=== PATIENT | female | born 1960 | race Caucasian/White ===

== ENCOUNTER 2024-03-06 09:42 | Emergency (ER) | payer BC, SELFPAY ==
--- NOTE | ~2024-03-06 | XR_ITS ---
EXAMINATION: XR ANKLE, LEFT CLINICAL INFORMATION: Pain COMPARISON: None available. TECHNIQUE: AP, lateral, and mortise views of the left ankle. FINDINGS: No acute cortical disruption or malalignment. No lytic or blastic lesions. No joint effusion. No subcutaneous emphysema. XR/XR ankle LT 2V IMPRESSION: No acute fracture or dislocation. Negative exam. Electronically signed by: Vincent Juarez MD 03/06/2024 12:38 PM EST
[2024-03-06 10:07] VITALS: BP 154/52; PULSE 77; RESP 16; TEMP 37; O2SAT 100; BMI 19.6
--- NOTE | 2024-03-06 13:14 | ED.GENADULT ---
HPI - General Adult General Chief complaint: Extremity Problem Stated complaint: L Ankle Pain No Injury Time Seen by Provider: 03/06/24 13:14 Source: patient Mode of arrival: ambulatory Limitations: no limitations History of Present Illness HPI narrative: 63 yold female with no pmh presents to the ED for left medial ankle pain decribe as shooting nerve pain that last seconds than resolve. patient states no trauma, swelling redness, calf pain, fever, chills, chest pain, sob, recent travel, recent surgery, or pluerisy. Related Data Allergies Allergy/AdvReac Type Severity Reaction Status Date / Time No Known Allergies Allergy Verified 03/06/24 10:09 Review of Systems Review of Systems: left anle pain Yes all other systems are reviewed and are negative PMFSH Social History Social History Advance Directives: No Advance Directives Information Provided: Yes Physical Exam ED Vital Signs: Vital Signs - 24 hr 03/06/24 13:15 03/06/24 13:30 Temperature 98.6 F Pulse Rate 89 89 Respiratory Rate 16 16 Blood Pressure 161/64 H 161/64 H Pulse Oximetry 98 98 Oxygen Delivery Method Room Air BMI result Body Mass Index 19.6 Const General: cooperative, healthy appearing, comfortable, no acute distress, well developed, alert, awake and Physically active Orientation/consciousness: patient oriented x3 HENMT Head: Yes normal to inspection, Yes No palpable skull fracture present, Yes normocephalic and Yes atraumatic Eyes General: appearance normal, both eyes and all related structures Neck Neck: Yes normal visual inspection, Yes full ROM, Yes no lymphadenopathy, Yes no meningeal signs, Yes trachea midline, Yes supple, No anterior neck swelling and No tender Chest Chest palpation & inspection: normal inspection of the chest and normal palpation of entire chest wall Resp Effort & Inspection: normal respiratory effort and able to speak in complete sentences Auscultation: clear to auscultation bilaterally Cardio Jugular venous distension: no JVD Heart sounds: S1 normal heart sound present and S2 normal heart sound present GI Inspection: Yes normal to inspection Palpation (GI): Soft to palpation, not firm, nontender, no guarding and not rigid General: Yes no CVA tenderness Back/Spine/Pelvis Back: no CVA tenderness and No back tenderness Skin General skin exam: no rashes or lesions noted, elasticity normal and turgor normal Neuro General: patient oriented x3, gait normal, tone normal, moves all extremities, Normal light touch and pain sensation, no meningeal signs, no focal motor deficits and CN's II-XI intact bilaterally Extrem General: Yes normal to inspection, No full ROM, Yes capillary refill normal, Yes normal exam except as noted, Yes no joint enlargement, Yes no clubbing, cyanosis or edema, Yes no pedal edema, Yes no calf tenderness and Yes normal gait Ankle/foot/toe images: 1. presently no pain. negative erythema, tenderness, bluish/black discoloration, ecchymosis, crepitus, swelling, calf pain, or rash. motor, neuro, and vascular exam is intact. Psych Appearance: grossly normal, well kempt and not disheveled Medical Decision Making Medical Decision Making MDM Narrative: 63 yold female with no pmh presents to the ED for resolved jolting left medial ankle pain. Patient denies any recent trauma, history long travel, recent surgery smoking, fever, chills, swelling, redness, calf pain, pleurisy, chest pain, shortness of breath. Patient states she was sent at work and felt a sudden jolt in pain and left medial ankle that occurred twice and then resolved. Physical exam negative for signs of DVT, arterial occlusion, compartment syndrome, osteomyelitis, necrotizing fasciitis, fracture, hematoma, or dislocation. X-ray normal. No indication for further imaging/ultrasound. Differential Diagnosis Differential Diagnoses: The differential diagnosis associated with the presentation includes (Fracture, dislocation, arthritis) Admission/Observation Consideration of admission/observation: Escalation of care including admission/observation considered Independent Interpretation I performed an independent interpretation of an: Plain X-Ray Radiology Impression Discussion of test interpretation with radiology: I have reviewed the radiologist's reading. Independent Historian Clinical information obtained from an independent historian. History obtained from or confirmed by: Other (Patient) External Record Review External record reviewed: Other (Prior visits) Prescription Management I considered prescription management with: Pain Medication Discharge Plan Discharge Clinical Impression: Ankle pain Patient Disposition: Home, Self-Care Instructions: Arthralgia (ED) Additional Instructions: X-ray came back negative for fracture or dislocation. Recommend follow-up with primary care provider. Return to the ED immediately for any worsening pain, swelling, redness, bluish black discoloration, numbness/tingling, calf pain, red streaks, ulcers/wounds and extremity, fever, chest pain, shortness of breath, chest pain on inspiration, difficulty walking, or any other concerning symptoms. You can continue taking [id number] Motrin that you having home for pain. You can also take [id number] Tylenol. FINDINGS: No acute cortical disruption or malalignment. No lytic or blastic lesions. No joint effusion. No subcutaneous emphysema. XR/XR ankle LT 2V IMPRESSION: No acute fracture or dislocation. Negative exam. Electronically signed by: Vincent Juarez MD 03/06/2024 12:38 PM [facility] Dictated By: Vincent Vargas MD Signed By: <Electronically signed by Vincent Nazario MD in [place]> 03/06/24 1238 DD/ 1200 TD/TT: 03/06/24 1205 Machine Repairman: Stand Alone Forms: Work/School Release Interventions: ED Discharge Assessment Last Done: 03/06/24 13:30 Discharge Date/Time: 03/06/24 13:30 Print Language: [place]
[2024-03-06 13:15] VITALS: BP 161/64; PULSE 89; RESP 16; O2SAT 98
[2024-03-06 13:30] VITALS: BP 161/64; PULSE 89; RESP 16; TEMP 37; O2SAT 98
== END 2024-03-06 13:30 | disposition home or self-care (01) ==
PROVIDERS: Emergency Provider Student in an Organized Health Care Education/Training Program; PCP Nurse Practitioner Family
DX: M25.572 Pain in left ankle and joints of left foot (principal)
CPT/HCPCS: 73600; 99282; 99283

== ENCOUNTER → 2024-03-06 12:00 | Outpatient (BNV) | payer SELFPAY | PROVIDERS: PCP Nurse Practitioner Family; Visit Provider Radiology Diagnostic Radiology | DX: M25.572 Pain in left ankle and joints of left foot (principal) | CPT/HCPCS: 73600 ==